=== PATIENT | female | born 2000 | race African-American/Black ===

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

== ENCOUNTER 2019-06-15 09:23 | Emergency (ER) | payer OTHER ==
[~2019-06-15] VITALS: Ht 167.6 cm; Wt 73.4 kg
[2019-06-15 09:24] VITALS: BP 120/70
[2019-06-15] MEDS ORDERED: [UNRECOGNIZED DRUG - OTHER] (09:29)
[2019-06-15] MEDS ORDERED: FLUTISP (10:28)
[2019-06-15] MEDS ORDERED: ALL10TAB29 PO (10:28)
== END 2019-06-15 10:34 | disposition home or self-care (01) ==
LOC: M ED 09:23
DX: J00 Acute nasopharyngitis [common cold] (principal); J32.8 Other chronic sinusitis; J45.909 Unspecified asthma, uncomplicated

== ENCOUNTER 2020-06-09 10:50 | Emergency (ER) | payer OTHER ==
[~2020-06-09] VITALS: Ht 157.5 cm; Wt 63.0 kg
[~2020-06-09 10:50] MED LIST: CETI-24 PO; FLUTISP; [UNRECOGNIZED DRUG - OTHER]
[2020-06-09 10:55] VITALS: BP 120/63
[2020-06-09] MEDS ORDERED: TESS100C PO (12:34)
[2020-06-09] MEDS ORDERED: ONDA4TAB6 PO (12:34)
== END 2020-06-09 12:48 | disposition home or self-care (01) ==
LOC: M ED 10:50
DX: B34.9 Viral infection, unspecified (principal); J06.9 Acute upper respiratory infection, unspecified
CPT/HCPCS: 87880; 99283; U0003

== ENCOUNTER 2020-07-06 18:19 | Emergency (ER) | payer OTHER ==
[~2020-07-06] VITALS: Ht 167.6 cm; Wt 60.7 kg
[~2020-07-06 18:19] MED LIST changes: +ONDA4TAB6 PO; +TESS100C PO
[2020-07-06] MEDS ORDERED: ONDANSETRON 4 MG ORAL DISINTEGRATING TAB PO ONE (20:45)
[2020-07-06 20:55] LABS: INFLUENZA A AMPLIFICATION NEGATIVE (NEGATIVE); INFLUENZA B AMPLIFICATION NEGATIVE (NEGATIVE)
[2020-07-06] MEDS ORDERED: ONDA4TAB6 PO (21:00)
[2020-07-06 21:01] VITALS: BP 132/84
== END 2020-07-06 21:26 | disposition home or self-care (01) ==
LOC: M ED 18:19
DX: B34.9 Viral infection, unspecified (principal); F17.200 Nicotine dependence, unspecified, uncomplicated
CPT/HCPCS: 87502; 87880; 99284; Q0162

== ENCOUNTER 2022-12-06 09:46 | Emergency (ER) | payer OTHER, SELFPAY ==
[~2022-12-06] VITALS: Ht 167.6 cm; Wt 57.6 kg
[2022-12-06 09:46] VITALS: BP 120/77
[2022-12-06] MEDS ORDERED: MELO15TA28 PO (09:54)
[2022-12-06] MEDS ORDERED: CYCL-707 PO (09:54)
== END 2022-12-06 12:34 | disposition left against medical advice (07) ==
LOC: M ED 09:46
DX: M54.2 Cervicalgia (principal); Z53.21 Procedure and treatment not carried out due to patient leaving prior to being seen by health care provider

== ENCOUNTER → 2023-06-20 | Outpatient (REF) ==
[~2023-06-20] MED LIST changes: +CYCL-707 PO; +FLUT50SP17; -FLUTISP; +MELO15TA28 PO
== END ==
LOC: M PLAIMG 09:04
PROVIDERS: ATTEND Internal Medicine
DX: R52 Pain, unspecified (principal)

== ENCOUNTER 2024-09-14 18:26 | Emergency (ER) | payer OTHER, BC ==
[~2024-09-14] VITALS: Ht 167.6 cm; Wt 62.9 kg
[~2024-09-14 18:26] MED LIST changes: -FLUT50SP17; +FLUTISP; +ONDA-282 PO; -ONDA4TAB6 PO
[2024-09-15] MEDS ORDERED: PRED20TA PO (00:55)
[2024-09-15 00:59] VITALS: BP 134/83; TEMP 97.4; O2SAT 100
[2024-09-15] MEDS: predniSONE 20 MG TAB PO ONE (01:05)
== END 2024-09-15 01:08 | disposition home or self-care (01) ==
LOC: M ED 18:26
DX: L20.89 Other atopic dermatitis (principal); Z79.52 Long term (current) use of systemic steroids; Z79.899 Other long term (current) drug therapy
CPT/HCPCS: 99283; J7512

== ENCOUNTER 2024-09-21 23:47 | Emergency (ER) | payer OTHER, BC ==
[~2024-09-21] VITALS: Ht 165.1 cm; Wt 54.5 kg
[~2024-09-21 23:47] MED LIST changes: +PRED20TA PO
[2024-09-22] VITALS: BP 146/82
[2024-09-22 00:02] VITALS: TEMP 98.4; O2SAT 100
== END 2024-09-22 01:40 | disposition home or self-care (01) ==
LOC: M ED 23:47
DX: R21 Rash and other nonspecific skin eruption (principal); J45.909 Unspecified asthma, uncomplicated; F10.10 Alcohol abuse, uncomplicated; Z79.52 Long term (current) use of systemic steroids; Z79.899 Other long term (current) drug therapy